=== PATIENT | male | born 1985 | race Caucasian/White ===

== ENCOUNTER → 2017-03-15 | Outpatient (CLI) | payer OTHER ==
[~2017-03-15] MED LIST: GADOBUTROL 10 MMOL/10 ML VIAL IV ONE; VALA10005 PO
--- NOTE | 2017-03-15 14:56 | KCIC ---
EXAM: Brain MRI with and without contrast. HISTORY: Blurred vision. Mental fogginess. TECHNIQUE: Multiplanar, multisequence magnetic resonance imaging of the brain was performed prior to and following the administration of 8 cc Gadavist intravenous contrast. COMPARISON: None. FINDINGS: There is no restricted diffusion to suggest acute or subacute infarction. There is no susceptibility effect to suggest hemorrhage. There is no mass effect or midline shift. There is no hydrocephalus. There are few tiny foci of T2/FLAIR hyperintensity within the cerebral white matter, likely artifactual rather than due to chronic small vessel disease or chronic migraine headaches. No demyelinating lesion is seen. The orbits, paranasal sinuses and mastoid air cells are unremarkable. There are normal flow voids within the cerebral vessels. No abnormal enhancing lesion is seen. IMPRESSION: No acute intracranial finding. Electronically signed by: Munira Johnston MD (03/15/2017 2:53 PM) [id number]
== END | disposition home or self-care (01) ==
LOC: KCIC MRI 13:57
PROVIDERS: ATTEND Nurse Practitioner Primary Care
DX: H53.8 Other visual disturbances (principal)
CPT/HCPCS: 70553; A9585